=== PATIENT | female | born 1995 | race Caucasian/White ===

== ENCOUNTER 2016-10-08 08:58 | Emergency (ER) | payer BC, OTHER ==
[2016-10-08] MEDS ORDERED: DEXAMETHASONE 10 MG/ML VIAL PO STA (09:19)
[2016-10-08] MEDS ORDERED: DEXAMETHASONE 10 MG/ML VIAL ONE (09:25)
== END 2016-10-08 10:12 | disposition home or self-care (01) ==
DX: J02.0 Streptococcal pharyngitis (principal); J45.909 Unspecified asthma, uncomplicated

== ENCOUNTER 2020-10-03 06:21 | Day surgery (SDC) | payer OTHER, MEDICAID ==
[2020-10-03] MEDS ORDERED: SODIUM CHLORIDE 0.9% 1,000 ML IV STA ×3 (06:33→08:49)
[2020-10-03 06:50] LABS: BILIRUBIN,URINE NEGATIVE (NEGATIVE); GLUCOSE, URINE (UA) NEGATIVE (NEGATIVE); KETONES,URINE (UA) NEGATIVE (NEGATIVE); LEUKOCYTE ESTERASE, URINE TRACE (NEGATIVE); NITRITE,URINE NEGATIVE (NEGATIVE); OCCULT BLOOD,URINE NEGATIVE (NEGATIVE); PROTEIN,URINE NEGATIVE (NEGATIVE); UROBILINOGEN,URINE 0.2 (NORMAL) E.U./dL (NORMAL)
[2020-10-03] MEDS: ONDANSETRON 4 MG/2 ML VIAL IVP STA ×2 (06:51→12:56)
[2020-10-03 06:53] LABS: CLARITY,URINE CLEAR (CLEAR); RBC,URINE None Seen /HPF (0-5); SQUAMOUS EPITHELIAL CELL,UR RARE Squamous (<= Few)
[2020-10-03 06:54] LABS: BACTERIA,URINE None Seen /HPF (None Seen); HCG UR QUAL NEGATIVE
--- NOTE | 2020-10-03 06:57 | ED Physician Documentation ---
PD HPI ABD PAIN - Stated complaint Stated Complaint: ABD PX/VOMITING - Chief complaint Chief Complaint: Abd Pain - History obtained from History obtained from: Patient - History of Present Illness Timing - onset: How many hours ago (2) Timing - duration: Hours (2) Timing - details: Abrupt onset, Still present Quality: Aching, Sharp, Pain Location: RUQ, RLQ (initially right sided but now feeling general abd pain, with nausea and vomiting. No dysuria. Has had normal BMs. No menses since delivery via 6 weeks ago.) Improved by: Laying still Worsened by: Moving, Position, Palpation Associated symptoms: Nausea, Loss of appetite. No: Fever, Hematemesis, Diarrhea, Constipation, Dysuria Similar symptoms before: Has not had sx before Recently seen: Surgery ( 6 weeks ago without complications. Healing well.) Review of Systems Constitutional: denies: Fever, Chills, Myalgias Nose: denies: Rhinorrhea / runny nose, Congestion Throat: denies: Sore throat Cardiac: denies: Chest pain / pressure Respiratory: denies: Cough GI: reports: Abdominal Pain, Nausea. denies: Abdominal Swelling, Vomiting, Constipation, Diarrhea : denies: Dysuria, Discharge Skin: denies: Rash Neurologic: reports: Generalized weakness. 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 HEENT: Myringotomy (tubes) - Present Medications Home Medications: Ambulatory Orders Medication Instructions Recorded Confirmed No Known Home Medications 10/03/20 10/03/20 - Allergies Allergies/Adverse Reactions: Allergies Allergy/AdvReac Type Severity Reaction Status Date / Time No Known Drug Allergies Allergy Verified 10/03/20 06:34 - Social History Does the pt smoke?: No Smoking Status: Never smoker Does the pt drink ETOH?: Yes Does the pt have substance abuse?: Yes - Immunizations Immunizations are current?: Yes PD ED PE NORMAL - Vitals Vital signs reviewed: Yes - General General: Alert and oriented X 3, Well developed/nourished, Other (She appears very uncomfortable.) - Neck Neck: Supple, no meningeal sign, No adenopathy - Cardiac Cardiac: No murmur. No: RRR (regular but tachycardic) - Respiratory Respiratory: Clear bilaterally - Abdomen Abdomen: Soft, No organomegaly, Other (Markedly tender in the right abdomen both right lower quadrant and right mid to upper. There is no CVA tenderness. There is local guarding and percussion tenderness with rebound noted.) - Female Female : Deferred - Rectal Rectal: Deferred - Back Back: No CVA TTP - Derm Derm: Normal color, Warm and dry - Extremities Extremities: No tenderness to palpate, Normal ROM s pain, No edema, No calf tenderness / cord - Neuro Neuro: Alert and oriented X 3, No motor deficit, Normal speech Eye Opening: Spontaneous Motor: Obeys Commands Verbal: Oriented GCS Score: 15 Results - Vitals Vitals: Vital Signs - 24 hr 10/03/20 10/03/20 10/03/20 06:25 08:00 09:17 Temperature 36.9 C Heart Rate 125 H 102 H 100 Respiratory 20 18 16 Rate Blood Pressure 96/55 L 107/63 105/66 O2 Saturation 100 100 97 10/03/20 11:02 Temperature 36.9 C Heart Rate 102 H Respiratory 16 Rate Blood Pressure 105/74 O2 Saturation 98 Oxygen O2 Source Room air - Labs Labs: Laboratory Tests 10/03/20 10/03/20 10/03/20 06:30 06:30 06:46 WBC 16.3 H RBC 4.47 Hgb 12.3 Hct 39.8 MCV 89.0 MCH 27.5 MCHC 30.9 L RDW 16.2 H Plt Count 393 MPV 9.6 Neut # (Auto) 13.9 H Lymph # (Auto) 1.6 [place] # (Auto) 0.5 Eos # (Auto) 0.0 Baso # (Auto) 0.1 Absolute Nucleated RBC 0.00 Nucleated RBC % 0.0 Sodium Potassium Chloride Carbon Dioxide Anion Gap BUN Creatinine Estimated GFR (MDRD) Glucose Calcium Total Bilirubin AST ALT Alkaline Phosphatase Total Protein Albumin Globulin Albumin/Globulin Ratio Lipase Urine Color YELLOW Urine Clarity CLEAR Urine pH 6.0 Ur Specific [place] 1.025 Urine Protein NEGATIVE Urine Glucose (UA) NEGATIVE Urine Ketones NEGATIVE Urine Occult Blood NEGATIVE Urine Nitrite NEGATIVE Urine Bilirubin NEGATIVE Urine Urobilinogen 0.2 (NORMAL) Ur Leukocyte Esterase TRACE H Urine RBC None Seen Urine WBC 4-5 Ur Squamous Epith Cells RARE Squamous Urine Bacteria None Seen Ur Microscopic Review INDICATED Urine Culture Comments INDICATED Urine HCG, Qual NEGATIVE Nasal Adenovirus (PCR) Nasal B. parapertussis DNA (PCR) Nasal Coronavir 229E PCR Nasal Coronavir HKU1 PCR Nasal Coronavir NL63 PCR Nasal Coronavir OC43 PCR Nasal Enterovir/Rhinovir PCR Nasal Influenza B PCR Nasal Influenza A PCR Nasal Parainfluen 1 PCR Nasal Parainfluen 2 PCR Nasal Parainfluen 3 PCR Nasal Parainfluen 4 PCR Nasal RSV (PCR) Nasal B.pertussis DNA PCR Nasal C.pneumoniae (PCR) Erich Human Metapneumo PCR Nasal M.pneumoniae (PCR) Nasal SARS-CoV-2 (PCR) 10/03/20 10/03/20 06:46 08:05 WBC RBC Hgb Hct MCV MCH MCHC RDW Plt Count MPV Neut # (Auto) Lymph # (Auto) [place] # (Auto) Eos # (Auto) Baso # (Auto) Absolute Nucleated RBC Nucleated RBC % Sodium 137 Potassium 3.9 Chloride 106 Carbon Dioxide 21 Anion Gap 10.0 BUN 15 Creatinine 0.7 Estimated GFR (MDRD) 100 Glucose 120 H Calcium 9.1 Total Bilirubin 0.5 AST 18 ALT 19 Alkaline Phosphatase 85 Total Protein 7.4 Albumin 4.1 Globulin 3.3 Albumin/Globulin Ratio 1.2 Lipase 36 Urine Color Urine Clarity Urine pH Ur Specific [place] Urine Protein Urine Glucose (UA) Urine Ketones Urine Occult Blood Urine Nitrite Urine Bilirubin Urine Urobilinogen Ur Leukocyte Esterase Urine RBC Urine WBC Ur Squamous Epith Cells Urine Bacteria Ur Microscopic Review Urine Culture Comments Urine HCG, Qual Nasal Adenovirus (PCR) NOT DETECTED Nasal B. parapertussis DNA (PCR) NOT DETECTED Nasal Coronavir 229E PCR NOT DETECTED Nasal Coronavir HKU1 PCR NOT DETECTED Nasal Coronavir NL63 PCR NOT DETECTED Nasal Coronavir OC43 PCR NOT DETECTED Nasal Enterovir/Rhinovir PCR DETECTED A Nasal Influenza B PCR NOT DETECTED Nasal Influenza A PCR NOT DETECTED Nasal Parainfluen 1 PCR NOT DETECTED Nasal Parainfluen 2 PCR NOT DETECTED Nasal Parainfluen 3 PCR NOT DETECTED Nasal Parainfluen 4 PCR NOT DETECTED Nasal RSV (PCR) NOT DETECTED Nasal B.pertussis DNA PCR NOT DETECTED Nasal C.pneumoniae (PCR) NOT DETECTED Erich Human Metapneumo PCR NOT DETECTED Nasal M.pneumoniae (PCR) NOT DETECTED Nasal SARS-CoV-2 (PCR) NOT DETECTED - Rads (name of study) abd/pelvic CT Radiology: Prelim report reviewed, Discussed with rads (Large tubular structure in the right lower quadrant consistent with inflamed appendix. There is possible small air bubbles seen in the pelvis suggesting early perforation. No abscess.), See rad report PD MEDICAL DECISION MAKING - ED course Complexity details: reviewed results, re-evaluated patient (Pain improved with IV medications. I reviewed with her the CT findings of apparent appendicitis. Awaiting surgical evaluation.), considered differential (concern for appendix, stones, ovarian cyst rupture, and also gallbladder, though tenderness is a bit low for that. More to RLQ. ), d/w patient, d/w managing consultant clinical professor (I talked with Dr. Thomas who is on-call for surgery. He is about to do a colonoscopy and will see the patient after that. Advised of the general belly tenderness along with the white count and CT findings showing appendicitis with possible microperforation. Plan OR. ) ED course: Awaiting Dr. Deleon to see the patient in right orders. He had been in colonoscopy at the time of initial call and states he had several of those today. He said he would see the patient between scopes. Still awaiting evaluation at this time. Departure - Departure Disposition: ED Transfer to [facility] Clinical Impression: Abdominal pain Qualifiers: Abdominal location: right lower quadrant Qualified Code(s): R10.31 - Right lower quadrant pain Appendicitis Qualifiers: Appendicitis type: acute appendicitis Acute appendicitis type: with generalized peritonitis Appendicitis gangrene presence: without gangrene Appendicitis perforation presence: unspecified whether perforation present Appendicitis abscess presence: without abscess Qualified Code(s): K35.20 - Acute appendicitis with generalized peritonitis, without abscess Condition: Stable Record reviewed to determine appropriate education?: Yes
[2020-10-03] MEDS ORDERED: HYDROmorphone 1 MG/ML CARPUJECT IVP STA ×2 (07:04→08:49)
[2020-10-03] MEDS ORDERED: KETOROLAC 15 MG/ML VIAL IVP STA (07:06)
[2020-10-03 07:18] LABS: BASOPHILS # (AUTO) 0.1 10^3/uL (0.0-0.1); BASOPHILS % (AUTO) 0.4 %; EOSINOPHILS % (AUTO) 0.2 %; HGB - HEMOGLOBIN 12.3 g/dL (12.0-16.0); LYMPHOCYTES # (AUTO) 1.6 10^3/uL (1.5-3.5); LYMPHOCYTES % (AUTO) 9.6 %; MEAN CORPUSCULAR HEMOGLOBIN 27.5 pg (27.0-31.0); MEAN CORPUSCULAR HGB CONC 30.9 g/dL (32.0-36.0); MEAN PLATELET VOLUME 9.6 fL (7.9-10.8); MONOCYTES # (AUTO) 0.5 10^3/uL (0.0-1.0); MONOCYTES % (AUTO) 2.8 %; NEUTROPHILS # (AUTO) 13.9 10^3/uL (1.5-6.6); NEUTROPHILS % (AUTO) 85.5 %; PLT - PLATELET COUNT 393 10^3/uL (130-450); RED BLOOD COUNT 4.47 10^6/uL (4.20-5.40); RED CELL DISTRIBUTION WIDTH 16.2 % (12.0-15.0); WHITE BLOOD COUNT 16.3 x10^3/uL (4.8-10.8)
[2020-10-03 07:23] LABS: ALBUMIN 4.1 g/dL (3.2-5.5); ALBUMIN/GLOBULIN RATIO 1.2 (1.0-2.2); BILIRUBIN,TOTAL 0.5 mg/dL (0.2-1.0); CALCIUM 9.1 mg/dL (8.5-10.3); CREATININE 0.7 mg/dL (0.4-1.0); TOTAL PROTEIN 7.4 g/dL (6.7-8.2)
[2020-10-03] MEDS ORDERED: IOVERSOL 320 100 ML VIAL IVP ONE ×2 (07:40→08:10)
--- NOTE | 2020-10-03 08:41 | CT Report ---
PROCEDURE: Abdomen/Pelvis W INDICATIONS: abrupt diffuse abd pain few hours ago CONTRAST: IV CONTRAST: Optiray 320 ml: 100 PO CONTRAST: *NO PO CONTRAST TECHNIQUE: After the administration of intravenous contrast, 5 mm thick sections acquired from the diaphragms to the symphysis. 5 mm thick coronal and sagittal reformats were acquired. For radiation dose reducti on, the following was used: automated exposure control, adjustment of mA and/or kV according to gareth ent size. COMPARISON: None. FINDINGS: Image quality: Excellent. ABDOMEN: Lung bases: Lung bases are clear. Heart size is normal. Solid organs: Liver and spleen are normal in size and enhancement. Gallbladder is unremarkable Maxwell iary system is non dilated. Pancreas enhances normally. No adrenal nodules. Kidneys demonstrate no rmal size and enhancement, without hydronephrosis. Peritoneum and bowel: Bowel loops demonstrate normal wall thickness and caliber. There is a tubular fluid-filled structure in the right lower quadrant which is best seen on image 17/6 (coronal reformat s), possibly representing a dilated inflamed appendix. Question a very small amount of extraluminal a ir deep in the pelvis to the right of the rectum on image 68/3. Minimal free pelvic fluid. Nodes and vessels: No retroperitoneal or mesenteric adenopathy by size criteria. Aorta and inferior vena cava are normal in size. Miscellaneous: No ventral hernias. PELVIS: Genitourinary: Bladder wall thickness is normal. Miscellaneous: No inguinal hernias or adenopathy. Bones: No suspicious bony lesions. No vertebral body compression fractures. IMPRESSION: 1. Findings are suspicious for possible acute appendicitis. There is also possible extraluminal air d eep in the pelvis. Consider possible ruptured acute appendicitis. Above discussed with Jarod Colby MD at the time of dictation on 10/03/2020 at 0840 hours. Reviewed by: Wesley Buckner MD on 10/03/2020 8:40 AM PST Approved by: Wesley Buckner MD on 10/03/2020 8:40 AM PST Station ID: [id number]
[2020-10-03] MEDS ORDERED: AMPICILLIN/SULBACTAM 3 GM in SODIUM CHLORIDE 0.9% MINIBAG 100 ML IV STA (08:49)
[2020-10-03 09:16] LABS: C. PNEUMONIAE- RESP PCR PANEL NOT DETECTED
[2020-10-03] MEDS ORDERED: LACTATED RINGERS 1,000 ML IV ONE ×2 (12:30→17:52)
[2020-10-03] MEDS ORDERED: ONDANSETRON ODT 4 MG TABLET TL PRN (12:46)
[2020-10-03] MEDS ORDERED: SODIUM CHLORIDE FLUSH 0.9% 10 ML SYRINGE IVP PRN (12:46)
[2020-10-03] MEDS ORDERED: ONDANSETRON 4 MG/2 ML VIAL IVP PRN ×3 (12:46→17:55)
[2020-10-03] MEDS ORDERED: ONDANSETRON 4 MG/2 ML VIAL ONE ×2 (12:52→13:37)
[2020-10-03] MEDS: HYDROmorphone 0.5 MG/0.5 ML SYRINGE IVP PRN ×2 (13:29→18:10)
[2020-10-03] MEDS ORDERED: CEFOTETAN DISODIUM 2 GM in SODIUM CHLORIDE 0.9% 100ML 100 ML IV ONE (13:30)
[2020-10-03] MEDS ORDERED: HYDROmorphone 0.5 MG/0.5 ML SYRINGE ONE ×2 (13:33→18:15)
[2020-10-03] MEDS ORDERED: NALOXONE 0.4 MG/ML VIAL IVP PRN (14:20)
[2020-10-03] MEDS ORDERED: HYDROmorphone 0.5 MG/0.5 ML SYRINGE IVP PRN (14:20)
[2020-10-03] MEDS ORDERED: fentaNYL 100 MCG/2 ML VIAL IVP PRN (14:20)
[2020-10-03] MEDS ORDERED: ACETAMINOPHEN 1,000 MG/100 ML 100 ML IV ONE ×2 (14:20→14:32)
[2020-10-03] MEDS ORDERED: METOCLOPRAMIDE 10 MG/2 ML VIAL IVP PRN (14:20)
[2020-10-03] MEDS ORDERED: MORPHINE 2 MG/ML CARPUJECT IVP PRN (14:20)
[2020-10-03] MEDS ORDERED: ATROPINE ABBOJECT 1 MG/10 ML SYRINGE IVP PRN (14:20)
[2020-10-03] MEDS ORDERED: ePHEDrine 50 MG/ML VIAL IVP PRN (14:20)
--- NOTE | 2020-10-03 14:21 | ANESTHESIA ---
Pre-Anesthesia VS, & Labs - Diagnosis acute appendicitis - Procedure laparoscopic appendectomy Vital Signs: Temp Pulse Resp BP Pulse Ox 37.8 C 103 H 22 102/54 L 98 10/03/20 13:30 10/03/20 13:30 10/03/20 13:30 10/03/20 13:30 10/03/20 13:30 Height: 4 ft 11 in Weight (kg): 45.5 kg Body Mass Index: 20.2 BMI Classification: Healthy weight - NPO >8 hours - Is Patient ?: No - Lab Results Current Lab Results: Laboratory Tests 10/03/20 06:46: Sodium 137, Potassium 3.9, Chloride 106, Carbon Dioxide 21, Anion Gap 10.0, BUN 15, Creatinine 0.7, Estimated GFR (MDRD) 100, Glucose 120 H, Calcium 9.1, Total Bilirubin 0.5, AST 18, ALT 19, Alkaline Phosphatase 85, Total Protein 7.4, Albumin 4.1, Globulin 3.3, Albumin/Globulin Ratio 1.2, Lipase 36 10/03/20 06:46: WBC 16.3 H, RBC 4.47, Hgb 12.3, Hct 39.8, MCV 89.0, MCH 27.5, MCHC 30.9 L, RDW 16.2 H, Plt Count 393, MPV 9.6, Neut # (Auto) 13.9 H, Lymph # (Auto) 1.6, [place] # (Auto) 0.5, Eos # (Auto) 0.0, Baso # (Auto) 0.1, Absolute Nucleated RBC 0.00, Nucleated RBC % 0.0 Fish Bones: 10/03/20 06:46 10/03/20 06:46 Home Medications and Allergies Home Medications: Ambulatory Orders No Known Home Medications 10/03/20 Active Medications Hydromorphone HCl (Hydromorphone 0.5 Mg/0.5 Ml Syringe) 0.5 mg IVP Q2H PRN PRN Reason: Pain 8 to 10 Last Admin: 10/03/20 13:29 Dose: 0.5 mg Documented by: Lactated Ringer's (Lr) 1,000 mls @ 100 mls/hr IV .Q10H GLENNA Ondansetron HCl (Ondansetron 4 Mg/2 Ml Vial) 4 mg IVP Q6HR PRN PRN Reason: Nausea / Vomiting Last Admin: 10/03/20 13:29 Dose: 4 mg Documented by: Ondansetron HCl (Ondansetron Odt 4 Mg Tablet) 4 mg TL Q6HR PRN PRN Reason: Nausea / Vomiting Sodium Chloride (Sodium Chloride Flush 0.9% 10 Ml Syringe) 10 ml IVP PRN PRN PRN Reason: NEEDED PER PROVIDER ORDERS Sodium Chloride (Sodium Chloride Flush 0.9% 10 Ml Syringe) 10 ml IVP 0100,0900,1700 GLENNA No Known Home Medications 10/03/20 Allergies/Adverse Reactions: Allergies Allergy/AdvReac Type Severity Reaction Status Date / Time No Known Drug Allergies Allergy Verified 10/03/20 06:34 Anes History & Medical History - Anesthetic History Anesthesia Complications: reports: Post-Operative Nausea/Vomiting - Medical History Cardiovascular: reports: None Pulmonary: reports: None Gastrointestinal: reports: None Urinary: reports: None Musculoskeletal: reports: None Endocrine/Autoimmune: reports: None Skin: reports: None Smoking Status: Never smoker History of Cancer?: No - Surgical History Eyes Ears Nose Throat (EENT): Myringotomy (tubes) Gynecologic: section Exam General: Alert, Oriented x3 Dental: WNL Mouth Opening: Greater than 4 Fingerbreadths Neck Mobility: Normal Mallampati classification: I Thyromental Distance: greater than 6 cm Respiratory: Lungs clear Cardiovascular: Regular rate, Normal S1, Normal S2 Plan Anesthesia Type: General Consent for Procedure(s) Verified and Reviewed: Yes Code Status: Attempt Resuscitation ASA classification: 1-Healthy patient Is this case an emergency?: Yes
[2020-10-03] MEDS: SCOPOLAMINE PATCH TOP SCH ×2 (14:26→19:21)
[2020-10-03] MEDS ORDERED: MIDAZOLAM 2 MG/2 ML VIAL ONE (14:53)
[2020-10-03] MEDS ORDERED: ROCURONIUM 50 MG/5 ML VIAL ONE (14:53)
[2020-10-03] MEDS ORDERED: LIDOCAINE-MPF 2% 5 ML VIAL ONE (14:53)
[2020-10-03] MEDS ORDERED: PROPOFOL 200 MG/20 ML VIAL IVP ONE (14:53)
[2020-10-03] MEDS ORDERED: fentaNYL 100 MCG/2 ML VIAL ONE (14:53)
[2020-10-03] MEDS ORDERED: LACTATED RINGERS 1,000 ML IV SCH (15:00)
[2020-10-03] MEDS ORDERED: BUPIVACAINE 0.25% PF 30 ML VIAL ONE (15:45)
--- NOTE | 2020-10-03 15:53 | HISTORY & PHYSICAL EXAMINATION ---
Chief Complaint - Chief Complaint Chief Complaint: right lower quadrant pain x 18 hours and n/v Abdominal Pain HPI - Admitted From Admitted from: ED - History Obtained From History obtained from: Patient Exam limitations: No limitations - History of Present Illness Severity at the worst: Moderate Pain Quality: Aching Context-Pain started w/: Rest Timing: Gradual onset Duration: Hours: (18) Improved with: Nothing (other than pain meds) Worsened by: Palpation Associated symptoms: Nausea, Vomiting PMH/PSH - Past Medical History Cardiovascular: positive: None Respiratory: positive: None Endocrine/Autoimmune: positive: None GI: positive: None : positive: None HEENT: positive: None Psych: positive: None Musculoskeletal: positive: None Derm: positive: None MRSA Hx?: No - 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 HEENT: positive: Myringotomy (tubes) Social & Family Hx - Social History Does the pt smoke?: No Smoking Status: Never smoker Does the pt drink ETOH?: Yes Does the pt have substance abuse?: Yes Substance Use and Type: Marijuana Meds/Allgy - Home Medications Home Medications: Ambulatory Orders Medication Instructions Recorded Confirmed No Known Home Medications 10/03/20 10/03/20 - Allergies Allergies/Adverse Reactions: Allergies Allergy/AdvReac Type Severity Reaction Status Date / Time No Known Drug Allergies Allergy Verified 10/03/20 06:34 Review of Systems - Other Findings Other Findings: 10 pt ros as above otherwise unremarkable Exam - Vital Signs Vital Signs: Vital Signs x48h Temp Pulse Resp BP Pulse Ox 10/03/20 13:30 37.8 C 103 H 22 102/54 L 98 10/03/20 12:20 38.1 C H 92 16 113/71 99 10/03/20 12:08 37.1 C 92 16 126/83 H 100 10/03/20 11:20 36.5 C 98 16 105/63 100 10/03/20 11:02 36.9 C 102 H 16 105/74 98 10/03/20 09:17 100 16 105/66 97 10/03/20 08:00 102 H 18 107/63 100 Results - Lab Results Fish Bones: 10/03/20 06:46 10/03/20 06:46 Other Lab Results: Lab Results x24hrs 10/03/20 10/03/20 10/03/20 Range/Units 08:05 06:46 06:46 WBC 16.3 H (4.8-10.8) x10^3/uL RBC 4.47 (4.20-5.40) 10^6/uL Hgb 12.3 (12.0-16.0) g/dL Hct 39.8 (37.0-47.0) % MCV 89.0 (81.0-99.0) fL MCH 27.5 (27.0-31.0) pg MCHC 30.9 L (32.0-36.0) g/dL RDW 16.2 H (12.0-15.0) % Plt Count 393 (130-450) 10^3/uL MPV 9.6 (7.9-10.8) fL Neut # (Auto) 13.9 H (1.5-6.6) 10^3/uL Lymph # (Auto) 1.6 (1.5-3.5) 10^3/uL [place] # (Auto) 0.5 (0.0-1.0) 10^3/uL Eos # (Auto) 0.0 (0.0-0.7) 10^3/uL Baso # (Auto) 0.1 (0.0-0.1) 10^3/uL Absolute Nucleated RBC 0.00 x10^3/uL Nucleated RBC % 0.0 /100WBC Sodium 137 (135-145) mmol/L Potassium 3.9 (3.5-5.0) mmol/L Chloride 106 (101-111) mmol/L Carbon Dioxide 21 (21-32) mmol/L Anion Gap 10.0 (6-13) BUN 15 (6-20) mg/dL Creatinine 0.7 (0.4-1.0) mg/dL Estimated GFR (MDRD) 100 (>89) Glucose 120 H (70-100) mg/dL Calcium 9.1 (8.5-10.3) mg/dL Total Bilirubin 0.5 (0.2-1.0) mg/dL AST 18 (10-42) IU/L ALT 19 (10-60) IU/L Alkaline Phosphatase 85 (42-121) IU/L Total Protein 7.4 (6.7-8.2) g/dL Albumin 4.1 (3.2-5.5) g/dL Globulin 3.3 (2.1-4.2) g/dL Albumin/Globulin Ratio 1.2 (1.0-2.2) Lipase 36 (22-51) U/L Urine Color Urine Clarity (CLEAR) Urine pH (5.0-7.5) PH Ur Specific [place] (1.002-1.030) Urine Protein (NEGATIVE) mg/dL Urine Glucose (UA) (NEGATIVE) mg/dL Urine Ketones (NEGATIVE) mg/dL Urine Occult Blood (NEGATIVE) Urine Nitrite (NEGATIVE) Urine Bilirubin (NEGATIVE) Urine Urobilinogen (NORMAL) E.U./dL Ur Leukocyte Esterase (NEGATIVE) Urine RBC (0-5) /HPF Urine WBC (0-5) /HPF Ur Squamous Epith Cells (<= Few) Urine Bacteria (None Seen) /HPF Ur Microscopic Review Urine Culture Comments Urine HCG, Qual Nasal Adenovirus (PCR) NOT DETECTED Nasal B. parapertussis DNA (PCR) NOT DETECTED Nasal Coronavir 229E PCR NOT DETECTED Nasal Coronavir HKU1 PCR NOT DETECTED Nasal Coronavir NL63 PCR NOT DETECTED Nasal Coronavir OC43 PCR NOT DETECTED Nasal Enterovir/Rhinovir PCR DETECTED A Nasal Influenza B PCR NOT DETECTED Nasal Influenza A PCR NOT DETECTED Nasal Parainfluen 1 PCR NOT DETECTED Nasal Parainfluen 2 PCR NOT DETECTED Nasal Parainfluen 3 PCR NOT DETECTED Nasal Parainfluen 4 PCR NOT DETECTED Nasal RSV (PCR) NOT DETECTED Nasal B.pertussis DNA PCR NOT DETECTED Nasal C.pneumoniae (PCR) NOT DETECTED Erich Human Metapneumo PCR NOT DETECTED Nasal M.pneumoniae (PCR) NOT DETECTED Nasal SARS-CoV-2 (PCR) NOT DETECTED 10/03/20 10/03/20 Range/Units 06:30 06:30 WBC (4.8-10.8) x10^3/uL RBC (4.20-5.40) 10^6/uL Hgb (12.0-16.0) g/dL Hct (37.0-47.0) % MCV (81.0-99.0) fL MCH (27.0-31.0) pg MCHC (32.0-36.0) g/dL RDW (12.0-15.0) % Plt Count (130-450) 10^3/uL MPV (7.9-10.8) fL Neut # (Auto) (1.5-6.6) 10^3/uL Lymph # (Auto) (1.5-3.5) 10^3/uL [place] # (Auto) (0.0-1.0) 10^3/uL Eos # (Auto) (0.0-0.7) 10^3/uL Baso # (Auto) (0.0-0.1) 10^3/uL Absolute Nucleated RBC x10^3/uL Nucleated RBC % /100WBC Sodium (135-145) mmol/L Potassium (3.5-5.0) mmol/L Chloride (101-111) mmol/L Carbon Dioxide (21-32) mmol/L Anion Gap (6-13) BUN (6-20) mg/dL Creatinine (0.4-1.0) mg/dL Estimated GFR (MDRD) (>89) Glucose (70-100) mg/dL Calcium (8.5-10.3) mg/dL Total Bilirubin (0.2-1.0) mg/dL AST (10-42) IU/L ALT (10-60) IU/L Alkaline Phosphatase (42-121) IU/L Total Protein (6.7-8.2) g/dL Albumin (3.2-5.5) g/dL Globulin (2.1-4.2) g/dL Albumin/Globulin Ratio (1.0-2.2) Lipase (22-51) U/L Urine Color YELLOW Urine Clarity CLEAR (CLEAR) Urine pH 6.0 (5.0-7.5) PH Ur Specific [place] 1.025 (1.002-1.030) Urine Protein NEGATIVE (NEGATIVE) mg/dL Urine Glucose (UA) NEGATIVE (NEGATIVE) mg/dL Urine Ketones NEGATIVE (NEGATIVE) mg/dL Urine Occult Blood NEGATIVE (NEGATIVE) Urine Nitrite NEGATIVE (NEGATIVE) Urine Bilirubin NEGATIVE (NEGATIVE) Urine Urobilinogen 0.2 (NORMAL) (NORMAL) E.U./dL Ur Leukocyte Esterase TRACE H (NEGATIVE) Urine RBC None Seen (0-5) /HPF Urine WBC 4-5 (0-5) /HPF Ur Squamous Epith Cells RARE Squamous (<= Few) Urine Bacteria None Seen (None Seen) /HPF Ur Microscopic Review INDICATED Urine Culture Comments INDICATED Urine HCG, Qual NEGATIVE Nasal Adenovirus (PCR) Nasal B. parapertussis DNA (PCR) Nasal Coronavir 229E PCR Nasal Coronavir HKU1 PCR Nasal Coronavir NL63 PCR Nasal Coronavir OC43 PCR Nasal Enterovir/Rhinovir PCR Nasal Influenza B PCR Nasal Influenza A PCR Nasal Parainfluen 1 PCR Nasal Parainfluen 2 PCR Nasal Parainfluen 3 PCR Nasal Parainfluen 4 PCR Nasal RSV (PCR) Nasal B.pertussis DNA PCR Nasal C.pneumoniae (PCR) Erich Human Metapneumo PCR Nasal M.pneumoniae (PCR) Nasal SARS-CoV-2 (PCR) Impression/Plan - Problem List Problem List: appendicitis. plan laparoscopic appendectomy parq held and consent obtained. n/v all day. plan overnight stay
[2020-10-03] MEDS ORDERED: BUPIVACAINE 0.25% PF 30 ML VIAL SUBQ ONE (16:37)
[2020-10-03] MEDS ORDERED: KETOROLAC 30 MG/ML VIAL ONE (16:50)
[2020-10-03] MEDS ORDERED: GLYCOPYRROLATE 1 MG/5 ML VIAL ONE (17:52)
[2020-10-03] MEDS ORDERED: NEOSTIGMINE 1 MG/1 ML 10 ML MDV ONE (17:52)
--- NOTE | 2020-10-03 18:04 | OPERATIVE REPORT ---
Operative Report - General Procedure Date: 10/03/20 Planned Procedure: lap appendectomy Pre-Op Diagnosis: appendicitis Procedure Performed: lap appendectomy Post Op Diagnosis: appendicitis with purulence in abdomen - Procedure Note Primary Surgeon: elizabeth diego Anesthesia Technique: General ET tube, Local Pathology: appendix Estimated Blood Loss (mL): 0 Drain/Tube Type: Sesar drain Complications: none
--- NOTE | 2020-10-03 19:22 | ANESTHESIA POST OP EVALUATION ---
Anesthesia Post Eval - Post Anesthesia Eval Vitals: Last Vital Signs Temp 37.4 C 10/03/20 18:59 Pulse 82 10/03/20 18:59 Resp 18 10/03/20 18:59 BP 103/51 L 10/03/20 18:59 Pulse Ox 98 10/03/20 18:59 CV Function Including HR & BP: positive: Stable Pain Control: positive: Satisfactory Nausea & Vomiting: positive: Negative Mental Status: positive: Patient Participates Respiratory Status: Airway Patent Hydration Status: Satisfactory Anesthesia Complications: positive: None
[2020-10-03] MEDS: SODIUM CHLORIDE FLUSH 0.9% 10 ML SYRINGE IVP SCH (19:37)
[2020-10-03] MEDS: CEFOTETAN DISODIUM 1 GM in SODIUM CHLORIDE 0.9% MINIBAG 100 ML IV SCH (19:42)
[2020-10-03] MEDS: LACTATED RINGERS 1,000 ML IV SCH (19:42)
[2020-10-03] MEDS: HYDROcod/ACETAM 5/325 MG TABLET PO PRN (20:00)
[2020-10-04] MEDS: SODIUM CHLORIDE FLUSH 0.9% 10 ML SYRINGE IVP SCH ×2 (00:05→09:32)
[2020-10-04] MEDS: HYDROcod/ACETAM 5/325 MG TABLET PO PRN ×4 (00:22→13:43)
--- NOTE | 2020-10-04 04:29 | OPERATIVE REPORT ---
DATE OF SERVICE: 10/03/2020 Physician: Zacarias Thomas MD POSTOPERATIVE DIAGNOSIS: Appendicitis. POSTOPERATIVE DIAGNOSIS: Appendicitis with purulent fluid within the abdomen. PROCEDURE PERFORMED 1. Laparoscopic appendectomy. 2. Drain placement. SURGEON: Zacarias Thomas MD ANIMAL SHELTER MANAGER: None. ANESTHESIA 1. General endotracheal anesthesia. 2. Local anesthesia with Marcaine. SPECIMEN: Appendix. ESTIMATED BLOOD LOSS: None. FINDINGS: Acute appendicitis with approximately 25 mL of hendrix/brownish, fairly thick intra-abdominal pelvic fluid. DRAINS: A 15-round Sesar drain. COMPLICATIONS: None. INDICATIONS FOR PROCEDURE: Patient is a 25-year-old, 6 weeks from C- section. She has had approximately 18 hours of right lower quadrant pain with peritoneal signs and elevated white count of 16. She has had significant nausea and vomiting as well. She had a CT scan showing a large plump appendix. She presents for laparoscopic appendectomy. Risks discussed, alternatives discussed. All questions answered and consent obtained. DESCRIPTION OF PROCEDURE: The patient was properly identified and brought to the operating room and placed in supine position. She voided prior to surgery. General endotracheal anesthesia was induced. Sequential compression devices were placed. She was prepped and draped in a sterile fashion and given preoperative antibiotics. Local anesthetic was given to incision areas. An infraumbilical incision was made. The dissection proceeded down to the fascia. The fascia was incised, lifted upwards, and abdomen entered with the Veress needle. CO2 was insufflated to a pressure of 15. A 12-mm trocar with a 30- degree scope was placed under vision. There was no evidence of injury from Veress needle or trocar placement. Under direct vision, a 5-mm trocar was placed within the Pfannenstiel incision area. An additional 5-mm trocar was placed in the right upper quadrant. Her right colon and cecum was still quite mobile from her recent . The appendix was identified, nearly in the right upper quadrant. The appendix was retracted anterior. A plane was created between the mesoappendix and the appendix. The mesoappendix was divided with an Endo-CALVIN vascular load. The 10-mm camera was switched out to a 5-mm camera at this time. Peritoneal tissue was further taken down from the appendix, all the way down to the cecum. The appendix was then completely removed with an Endo- CALVIN intestinal load. Hemostasis was assured. There was secure closure at the cecum. Appendix was placed in an EndoCatch bag and brought out. The abdomen was thoroughly irrigated. A 15-round Sesar drain was placed in the right gutter and brought out through the suprapubic trocar site. It was secured with a 3-0 nylon suture. Trocars were removed under direct vision and CO2 evacuated. Fascia at the infraumbilical site was closed with a running 0 Vicryl suture. Subcutaneous tissue was irrigated and then skin closed loosely with buried interrupted 4-0 Monocryl. Dressings were applied. She tolerated the procedure well. TD: 10/03/2020 21:23 JODI
[2020-10-04] MEDS: LACTATED RINGERS 1,000 ML IV SCH (05:51)
[2020-10-04] MEDS: CEFOTETAN DISODIUM 1 GM in SODIUM CHLORIDE 0.9% MINIBAG 100 ML IV SCH (05:52)
[2020-10-04 12:24] VITALS: BP 111/65
--- NOTE | 2020-10-04 13:34 | Discharge Plan ---
Discharge Plan Problem Reviewed?: Yes Disposition: Home, Self Care Condition: Stable Prescriptions: HYDROcod/ACETAM 5/325 [[place] 5/325] 1 each PO Q6H PRN #15 tablet PRN Reason: Pain Ondansetron Odt [Zofran Odt] 4 mg PO Q6H PRN #15 tablet PRN Reason: Nausea / Vomiting Diet: Regular Activity Restrictions: 15 pound lifting restrict Shower Restrictions: No Driving Restrictions: Yes (Not until follow up) No Smoking: If you smoke, Please STOP! Call for help. Follow-up with: Zacarias Thomas MD [Provider Admit Priv/Credential] -
--- NOTE | 2020-10-04 13:35 | DISCHARGE SUMMARY ---
"Discharge Summary Admit Date: 10/03/20 Discharge Date: 10/04/20 Discharging Provider: David Code Status: Attempt Resuscitation Condition at Discharge: Stable Discharge Disposition: 01 Home, Self Care - DIAGNOSES Admission Diagnoses: Acute appendicitis Discharge Diagnoses with Status of Each Condition: Resolved - HPI History of Present Illness: right lower quadrant pain x 18 hours and n/v - CONSULTS | PROCEDURES Consultations: None Procedures: Laparoscopy with appendectomy - HOSPITAL COURSE Hospital Course: The patient was admitted through the ED and taken directly to the operating room for uneventful operation. This morning her pain is controlled, drain has been removed, and she is tolerating a diet. She is able to walk the halls unassisted. She is discharged to her home in the care of her family. - ALLERGIES Allergies/Adverse Reactions: Allergies Allergy/AdvReac Type Severity Reaction Status Date / Time No Known Drug Allergies Allergy Verified 10/03/20 06:34 - MEDICATIONS Home Medications: Ambulatory Orders Medication Instructions Recorded Confirmed HYDROcod/ACETAM 5/325 [[place] 5/325] 1 each PO Q6H PRN #15 tablet 10/03/20 Ondansetron Odt [Zofran Odt] 4 mg PO Q6H PRN #15 tablet 10/03/20 - PHYSICAL EXAM AT DISCHARGE General Appearance: positive: No acute distress, Alert Eyes Bilateral: positive: Normal inspection, PERRL, EOMI ENT: positive: ENT inspection nml, Pharynx nml, No signs of dehydration Neck: positive: Nml inspection, Thyroid nml, No JVD Respiratory: positive: Chest non-tender, No respiratory distress, Breath sounds nml Cardiovascular: positive: Regular rate & rhythm Peripheral Pulses: positive: 0 Abdomen: positive: Tenderness, Other (Appropriately tender to palpation. Wounds are clean and dressed) Back: negative: CVA tenderness (R), CVA tenderness (L) Skin: positive: Color nml Extremities: positive: Non-tender Neurologic/Psychiatric: positive: Oriented x3 - LABS Result Diagrams: 10/03/20 06:46 10/03/20 06:46 - QUALITY (Female Hip Fx Only) Was patient sent home on osteoporosis medication?: No - FOLLOW UP Follow Up: [address] Thomas - TIME SPENT Time Spent in Discharge (Minutes): 15"
== END 2020-10-04 14:20 | disposition home or self-care (01) ==
LOC: ED 06:21 → SDS 11:15 → MS3 18:34 → SDS 10-04 14:20
PROVIDERS: ATTEND Surgery
PROC: 0DTJ4ZZ Resection of Appendix, Percutaneous Endoscopic Approach (ICD-10-PCS; principal; 2020-10-03 15:30)
DX: K35.32 Acute appendicitis with perforation, localized peritonitis, and gangrene, without abscess (principal); Z72.89 Other problems related to lifestyle
CPT/HCPCS: 0202U; 36415; 44970; 74177; 80053; 81001; 81025; 83690; 85025; 87086; 96365; 96375; 96376; 99284; 99285; A9270; J0131; J1170; J3490; J7120; Q0162; Q9967; 81003

== ENCOUNTER 2021-04-01 18:08 | Emergency (ER) | payer OTHER, MEDICAID ==
[2021-04-01] MEDS ORDERED: AMOX/CLAV 875 MG/125 MG TABLET PO STA (19:10)
[2021-04-01] MEDS ORDERED: TETANUS/DIPHTHERIA/PERTUSSIS 0.5 ML SYRINGE IM ONE (19:10)
[2021-04-01] MEDS ORDERED: BUFFERED LIDOCAINE 10 ML SYRINGE SUBQ STA (19:20)
[2021-04-01] MEDS ORDERED: BACITRACIN ZINC OINT 1 PACKET TOP STA (19:21)
[2021-04-01] MEDS ORDERED: HYDROmorphone 1 MG/ML CARPUJECT IM STA (19:22)
--- NOTE | 2021-04-01 19:25 | ED Physician Documentation ---
History of Present Illness - Stated complaint Stated Complaint: LT HAND DOG BITE/FINGERS NUMB - Chief complaint Chief Complaint: Laceration - Additonal information Additional information: 26-year-old female presents to the emergency department for evaluation of a left hand dog bite wound. She was her own dogs who were fighting when she got bit on the left hand. Their vaccines and rabies are up-to-date. Patient has 3 puncture wounds on the dorsum of the left hand as well as a puncture wound at the base of the left thumb. There is significant swelling and ecchymosis. Unsure of last tetanus. Review of Systems Constitutional: denies: Fever, Chills Eyes: reports: Reviewed and negative Ears: reports: Reviewed and negative Nose: reports: Reviewed and negative Throat: reports: Reviewed and negative Cardiac: reports: Reviewed and negative Respiratory: reports: Reviewed and negative GI: reports: Reviewed and negative : reports: Reviewed and negative Skin: reports: Bite / sting (left hand) Musculoskeletal: reports: Reviewed and negative PD PAST MEDICAL HISTORY - Past Medical History Past Medical History: No Cardiovascular: None Respiratory: None Endocrine/Autoimmune: None GI: None : None HEENT: None Psych: None Musculoskeletal: None Derm: None - Past Surgical History Past Surgical History: Yes General: Appendectomy /PHARMACY BENEFIT MANAGER: section HEENT: Myringotomy (tubes) - Present Medications Home Medications: Ambulatory Orders Medication Instructions Recorded Confirmed Amox/Clav 875/125 [Augmentin] 1 each PO Q12H #20 tablet 04/01/21 HYDROcod/ACETAM 5/325 [[place] 5/325] 1 tablet PO BID PRN #10 tablet 04/01/21 - Allergies Allergies/Adverse Reactions: Allergies Allergy/AdvReac Type Severity Reaction Status Date / Time No Known Drug Allergies Allergy Verified 04/01/21 18:17 - Social History Does the pt smoke?: No Smoking Status: Never smoker Does the pt drink ETOH?: No Does the pt have substance abuse?: Yes Substance Use and Type: Marijuana - Immunizations Immunizations are current?: Yes PD ED PE EXPANDED - General General: Alert, In Pain - Extremities Extremities: Left hand (3 puncture wounds dorsum left hand distal to the wrist over 3,4,5th metacarpals. Normal flexion/extension of hand against resitance) Results - Vitals Vitals: Vital Signs - 24 hr 07/21/21 18:17 Temperature 36.8 C Heart Rate 97 Respiratory 20 Rate Blood Pressure 131/81 H O2 Saturation 100 Oxygen O2 Source Room air Procedures - Laceration (location) left hand dog bite laceration Length in cm: 1.5 Wound type: Linear, Into subcut fat, Into muscle Neurovascular status: Motor intact, Vascular intact. No: Sensory intact (mild numbness distal ring and small finger) Tendon involvement: Tendon intact Anesthesia: LET, Lidocaine 1% Wound preparation: Chlorhexadine, Irrigated copiously NS Skin layer closure: Sutures - enter # (2) Other: Patient tolerated well, No complications, Dressing applied, Tetanus booster given PD MEDICAL DECISION MAKING - ED course Complexity details: reviewed results, re-evaluated patient, d/w patient ED course: 26-year-old female presents emergency department for evaluation of multiple dog bite puncture wounds and lacerations to the left hand. The largest puncture wound/laceration was 1.5 cm and it was approximated with 2 sutures. Her wounds were copiously irrigated with normal saline and she was given her first dose of Augmentin here in the emergency department. She did have some numbness and tingling of the fourth and fifth fingers of the left hand though this was improving by the time of the ER discharge. I discussed with her that some nerve injury may be present and she should call a hand surgeon tomorrow for further follow-up. Tetanus was updated today. She will be given a 10-day prescription for Augmentin. Routine wound care and emergent return precautions were discussed for concerns of infection. I am prescribing a short course of short-acting opioid pain medication for this patient. I have reviewed the patients CASEWORK MANAGER and no concerning findings were noted. I have discussed that the opioids are for short term therapy only, and will not be refilled from the ED. Departure - Departure Disposition: 01 Home, Self Care Clinical Impression: Numbness of fingers Dog bite Qualifiers: Encounter type: initial encounter Qualified Code(s): W54.0XXA - Bitten by dog, initial encounter Hand laceration Qualifiers: Encounter type: initial encounter Foreign body presence: without foreign body Laterality: left Qualified Code(s): S61.412A - Laceration without foreign body of left hand, initial encounter Condition: Stable Record reviewed to determine appropriate education?: Yes Instructions: ED Bite Dog Ch Follow-Up: [facility] [Provider Group] Prescriptions: Amox/Clav 875/125 [Augmentin] 1 each PO Q12H #20 tablet HYDROcod/ACETAM 5/325 [[place] 5/325] 1 tablet PO BID PRN #10 tablet PRN Reason: Pain Comments: Mary andrew were seen in the ER today for dog bite puncture wounds to your left hand. Only one of the puncture wounds was closed. The stitches should be removed in 7 days. Your suture should be removed in 7 to 10 days. In 24 hours you may remove the dressing wash gently with warm soap and water, apply any antibiotic ointment and a simple bandage. Your tetanus is up-to-date. Please attempt to keep your wound clean and dry. Do not submerge it in dirty dishwater or bath water. Return to the emergency department if you have any concerns of infection such as redness, fevers milky drainage increased pain. You do have some numbness and tingling in the ring and small finger on your left hand. This can be a sign of nerve injury. Please call [facility] orthopedic surgery tomorrow for follow-up to ensure that if there is nerve damage it is treated promptly and appropriately. Dog bite wounds are at high risk for infection. Please fill the prescription for the antibiotics and take as directed. I have prescribed a very limited amount of hydrocodone for severe pain only I am prescribing a short course of narcotic pain medication for you. These are potentially dangerous and addictive medications that should be used carefully. These medications may constipate you. Take an [id number]-[id number] stool softener (docusate) twice daily with plenty of water while taking these medications. If you go 24 hours without a bowel movement, take [id number] miralax, per package instructions. Do not drink or drive while taking these medications. If you received narcotic or sedating medications while in the emergency department, do not drive for 24 hours. Store this medication in a safe, secure place and out of reach of children. It is a violation of federal law to give or sell this medication to another person or to use in a manner other than prescribed. The ED will not refill narcotic prescriptions, including prescriptions lost or stolen. To dispose of unwanted medications: 1. [facility] [address] in [place] has a medication drop box. They accept prescription medications (in pill form) Tuesday through Tuesday 9:00 a.m. to 5:00 p.m. 2. The [facility] [place] [employer] accepts prescription medications (in pill form only) for disposal year round. Call for more information. 3. Contact the [facility] for the next [facility] sponsored prescription drug collection event. , [phone], or [phone]; Note that many narcotic pain relievers also contain Tylenol/acetaminophen. Please ensure that your total dose of acetaminophen from all sources does not exceed 3 g (3000 mg) per day.
[2021-04-01 20:07] VITALS: BP 116/71
--- NOTE | 2021-04-01 20:29 | XRAY Report ---
PROCEDURE: Hand 3 View LT INDICATIONS: dog bite wound; r/o fx TECHNIQUE: 3 views of the hand(s) acquired. COMPARISON: None FINDINGS: Bones: No fractures or dislocations. No suspicious bony lesions. Soft tissues: No suspicious soft tissue calcifications. No radiodense foreign bodies. IMPRESSION: No fracture or foreign body. Reviewed by: Zahraa Navas MD on 04/01/2021 8:27 PM PDT Approved by: Zahraa Navas MD on 04/01/2021 8:27 PM PDT Station ID: [id number]
== END 2021-04-01 20:10 | disposition home or self-care (01) ==
LOC: ED 18:08
DX: S61.412A Laceration without foreign body of left hand, initial encounter (principal); W54.0XXA Bitten by dog, initial encounter; Z23 Encounter for immunization
CPT/HCPCS: 12041; 73130; 90471; 90715; 96372; 99283; A9270; J1170